=== PATIENT | male | born 1975 ===

== ENCOUNTER 2021-03-21 10:20 | Outpatient (CLI) | payer OTHER | END 2021-03-21 15:00 | disposition home or self-care (01) | LOC: LAB 10:20 | PROVIDERS: ATTEND Emergency Medicine Pediatric Emergency Medicine | DX: Z20.818 Contact with and (suspected) exposure to other bacterial communicable diseases (principal); Z20.828 Contact with and (suspected) exposure to other viral communicable diseases ==